=== PATIENT | male | born 1940 | race Caucasian/White ===

== ENCOUNTER → 2016-11-08 | Outpatient (CLI) | payer MEDICARE, BC ==
[~2016-11-08] MED LIST: ACCUPRIL40 MG; ALLOPURINOL300 MG; GLUCOPHAGE500 MG PO; GLUCOTROL PO; HYDRALAZINE HCL25 MG PO; HYDROCHLOROTHIA25 MG PO; KEFLEX500 MG PO; LASIX20 MG; LOPID600 MG; NIACOR PO; TOPROL XL100 MG; VERAMYST10 GM NS; VERELAN360 MG; ZOCOR20 MG
--- NOTE | ~2016-11-08 | CR63 ---
[facility] RADIOLOGY TEXT RESULTS PATIENT: ALVARO RACHEL LOCATION: [facility] : 38 UNIT #: [id number] AGE: [address]: Aster Pate MD SEX: M ORDER DR: [id number] [address] [id number] O MR#: [id number] Acc #: [id number] NAME: ALVARO RACHEL : 1940 SEX: M STUDY DATE/TIME: 11/08/2016 12:58 UNIT: [facility] ROOM: STUDY DESCRIPTION: CR Chest 2 View Attending Physician: Aster Pate M.D. Referring Physician: Aster Pate M.D. Ordering Physician: Aster Pate M.D. Primary Care Physician: Aster Pate M.D. MEDICAL IMAGING REPORT This report is preliminary unless electronic signature is present. EXAM Chest PA and lateral 11/08/2016 COMPARISON STUDIES 05/20/2013. HISTORY Shortness of breath on exertion for 2-3 months. TECHNIQUE PA and lateral views are obtained. FINDINGS Cardiac size in the patient is mildly enlarged. Mild prominence of the vascular interstitial markings. No acute infiltrates are seen. CONCLUSION Mild cardiac enlargement and mild prominence of the vascular interstitial markings, stable. Dictated by... Kyle Anna M.D. THIS IS AN ELECTRONICALLY VERIFIED REPORT Kyle Anna M.D. at 11/09/2016 7:10 AM HERMILA/yoshi TD: 11/08/2016 15:35 JOB #: [id number] [facility] RADIOLOGY TEXT RESULTS PATIENT: ALVARO RACHEL LOCATION: [facility] : 38 UNIT #: [id number] AGE: [address]: Aster Pate MD SEX: M ORDER DR: MEDICAL IMAGING REPORT Page 1 of 1
== END | disposition home or self-care (01) ==
LOC: SRAD 12:51
DX: R06.02 Shortness of breath (principal); I51.7 Cardiomegaly
CPT/HCPCS: 71020